=== PATIENT | male | born 1965 | race Two or more races ===

== ENCOUNTER 2020-09-11 15:39 | Inpatient (IN) | payer SELFPAY ==
[~2020-09-11] VITALS: Ht 170.2 cm; Wt 75.0 kg
--- NOTE | 2020-09-11 16:07 | NUR ---
PT IS IN ROOM #1A. DR MEJIA EVALUATED THE PT.
[2020-09-11 16:34] LABS: HEMATOCRIT 32.1 % (36.7-47.1); MEAN CORPUSCULAR HEMOGLOBIN 30.7 uug (23.8-33.4); MEAN CORPUSCULAR VOLUME 91.6 fL (73.0-96.2); PLATELET COUNT (AUTO) 181 K/uL (152-348)
[2020-09-11 16:40] LABS: CREATININE 5.7 mg/dL (0.6-1.3); POTASSIUM 3.9 mmol/L (3.5-5.1)
[2020-09-11 17:02] LABS: BILIRUBIN,DIRECT 0.1 mg/dL (0.0-0.2); BILIRUBIN,TOTAL 0.3 mg/dL (0.2-1.0); TOTAL PROTEIN, SERUM 7.4 g/dL (6.4-8.2)
[2020-09-11] MEDS ORDERED: LORAZEPAM 2 MG/1 ML VIAL IV PRN (18:30)
[2020-09-11] MEDS ORDERED: Z GUARD REMEDY PASTE 57 GM TUBE TOP PRN (18:30)
[2020-09-11] MEDS ORDERED: ONDANSETRON 4 MG/2 ML VIAL IV PRN (18:30)
[2020-09-11] MEDS ORDERED: MAGNESIUM HYDROXIDE 30 ML LIQUID UDC PO PRN (18:30)
--- NOTE | 2020-09-11 18:56 | NUR ---
REPORT GIVEN TO LIVESTOCK LABORER RN.
--- NOTE | 2020-09-11 20:10 | NUR ---
Patient assigned to telemetry room 312.
--- NOTE | 2020-09-11 21:05 | NUR ---
Room changed to 304.
--- NOTE | 2020-09-11 21:11 | NUR ---
Report given to VINCENT Alston.
--- NOTE | 2020-09-11 21:25 | NUR ---
Pt. admitted to 304, under care of COMMISSIONED POLICE OFFICER Jose Armando. Belongs List completed
--- NOTE | 2020-09-11 21:25 | NUR ---
ADMITTED PATIENT IN TELE FLOOR UNDER THE CARE OF LARRY NICHOLSON, PATIENT ALERT ORIENTED, NO SOB NO CHEST PAIN, WITH R CHEST DIALYSIS ACCESS, DRESSING INTACT, PATIENT HAD DIALYSIS TODAY BUT DON'T REMEMBER HOW MUCH THEY TOOK OUT. PATIENT STILL URINATE, GOES TO THE TOILET. PATIENT MEDICATION LIST WAS LISTED ON [email or web address], AND NOTIFY Obed NICHOLSON TO RECONCILE. PATIENT CLAIMED HE HAD NUMBNESS ON FACE, RIGHT ARM AND SHOULDER, AND RIGHT CHEST. BP ELEVATED WILL NOTIFY MD. BYRD TO MONITOR.
[2020-09-11] MEDS ORDERED: DEXTROSE 50% 50 ML DISP.SYRIN IV PRN (22:00)
[2020-09-11] MEDS ORDERED: NIFE-34 PO (22:03)
[2020-09-11] MEDS ORDERED: HYDR-4077 PO (22:03)
[2020-09-11] MEDS ORDERED: FERR325T30 PO (22:03)
[2020-09-11] MEDS ORDERED: METO200T3 PO (22:03)
[2020-09-11] MEDS ORDERED: CALC667T6 PO (22:03)
[2020-09-11] MEDS ORDERED: CALC0.253 PO (22:03)
[2020-09-11] MEDS ORDERED: OLME1TAB19 PO (22:03)
[2020-09-11 22:07] VITALS: BP 154/91
[2020-09-11] MEDS: HEPARIN SODIUM,PORCINE 5,000 UNITS/ML VIAL SQ SCH (23:18)
[2020-09-11] MEDS ORDERED: INSULIN GLARGINE,HUM 300 UNITS/3 ML CARTRIDGE SQ ONE (23:40)
[2020-09-12] VITALS: BP 165/87
[2020-09-12] MEDS: INSULIN GLARGINE,HUM 300 UNITS/3 ML CARTRIDGE SQ SCH ×2 (00:08→21:04)
--- NOTE | 2020-09-12 00:15 | NUR ---
PATIENT HAS ELEVATED BP 165/87, TELE MONITOR SINUS RHYTHM, NOTIFY MARIE STAY WITH ORDER TO CONT TO MONITOR. PATIENT HAS NO SOB NO CHEST PAIN, NO DIZZINESS, NO NAUSEA NO VOMITING ASYMPTOMATIC, CONT TO MONITOR.
[2020-09-12 04:03] VITALS: BP 142/94
[2020-09-12] MEDS: PANTOPRAZOLE SODIUM 40 MG TABLET.DR PO SCH (06:00)
[2020-09-12] MEDS: BLOOD SUGAR DIAGNOSTIC 1 EACH STRIP VI SCH ×4 (06:01→20:55)
--- NOTE | 2020-09-12 06:56 | NUR ---
PATIENT ALERT ORIENTED, NO SOB NO CHEST PAIN, TELE MONITOR SINUS RHYTHM 74. PATIENT HAS NO COMPLAIN OF PAIN AT THIS TIME, V/S STABLE. PATIENT STILL HAS FACIAL NUMBNESS, RIGHT ARM AND RIGHT SHOULDER NUMBNESS, V/S STABLE AT THIS TIME. CONT TO MONITOR.
[2020-09-12 07:12] LABS: HEMATOCRIT 30.8 % (36.7-47.1); MEAN CORPUSCULAR HEMOGLOBIN 31.1 uug (23.8-33.4); MEAN CORPUSCULAR VOLUME 91.2 fL (73.0-96.2); PLATELET COUNT (AUTO) 164 K/uL (152-348)
[2020-09-12] MEDS: CALCIUM ACETATE 667 MG CAP/TAB PO SCH ×3 (08:48→17:29)
[2020-09-12] MEDS: HYDROCHLOROTHIAZIDE 12.5 MG CAPSULE PO SCH (08:49)
[2020-09-12] MEDS: LOSARTAN POTASSIUM 50 MG TABLET PO SCH (08:49)
[2020-09-12] MEDS: NIFEdipine XL 60 MG TABSR PO SCH ×2 (08:49→16:44)
[2020-09-12] MEDS: METOPROLOL SUCCINATE XL 50 MG TAB.SR.24H PO SCH (08:50)
[2020-09-12] MEDS: FERROUS SULFATE 325 MG TABEC PO SCH ×2 (08:51→16:43)
[2020-09-12] MEDS: NICOTINE 7 MG/24HR PATCH TD SCH (08:51)
[2020-09-12] MEDS: hydrALAZINE HCL 50 MG TABLET PO SCH ×2 (08:51→16:44)
[2020-09-12] MEDS: HEPARIN SODIUM,PORCINE 5,000 UNITS/ML VIAL SQ SCH ×2 (08:53→21:01)
[2020-09-12] MEDS: CALCITRIOL 0.25 MCG CAPSULE PO SCH (08:55)
[2020-09-12 09:45] LABS: MAGNESIUM 2.6 mg/dL (1.8-2.4); POTASSIUM 3.9 mmol/L (3.5-5.1)
[2020-09-12 11:46] VITALS: BP 163/87
[2020-09-12] MEDS: INSULIN REGULAR, HUMAN 300 UNIT/3 ML VIAL SQ PRN ×2 (11:59→21:03)
[2020-09-12 15:22] VITALS: BP 124/74
--- NOTE | 2020-09-12 18:17 | NUR ---
Patient in bed, alert and oriented x 4, denies of any pain. IV site on left AC saline lock dressing intact. Dialysis on the right chest intact. Patient is pleasant and cooperative upon assessment. All due meds given per MD order , call light placed within reach. Per patient his last dialysis was yesterday in the center.
[2020-09-12 20:15] VITALS: BP 159/86
--- NOTE | 2020-09-12 20:16 | NUR ---
Patient alert and able to make needs known.Denies pain at this time.No sob.On RA.Dialysis cath on right upper chest intact.Dressing clean and dry.Iv on left AC.No s/s of infiltration. NSR on tele. Patient ambulates to bathroom. Voided with out difficulty.Call light with in reach. Will continue to monitor.
[2020-09-12] MEDS ORDERED: ATORVASTATIN 40 MG TABLET PO SCH (21:00)
[2020-09-12] MEDS: ATORVASTATIN 40 MG TABLET PO SCH (21:01)
[2020-09-13] VITALS: BP 126/72
[2020-09-13 04:10] VITALS: BP 152/75
[2020-09-13] MEDS: PANTOPRAZOLE SODIUM 40 MG TABLET.DR PO SCH (06:17)
[2020-09-13 06:30] LABS: HEMATOCRIT 32.1 % (36.7-47.1); MEAN CORPUSCULAR HEMOGLOBIN 31.3 uug (23.8-33.4); MEAN CORPUSCULAR VOLUME 91.6 fL (73.0-96.2); PLATELET COUNT (AUTO) 164 K/uL (152-348)
[2020-09-13] MEDS: BLOOD SUGAR DIAGNOSTIC 1 EACH STRIP VI SCH ×4 (06:35→20:20)
[2020-09-13 07:26] LABS: MAGNESIUM 2.6 mg/dL (1.8-2.4); POTASSIUM 3.8 mmol/L (3.5-5.1)
--- NOTE | 2020-09-13 07:35 | NUR ---
Critical lab value reported. Creatinine: 9. NIKKY Suárez notified. No new orders at this time.
[2020-09-13 08:15] VITALS: BP_SYST 105; BP_SYST 129; BP_SYST 135; BP_DIAS 61; BP_DIAS 71; BP_DIAS 75
[2020-09-13] MEDS: CALCIUM ACETATE 667 MG CAP/TAB PO SCH ×3 (08:37→17:18)
[2020-09-13] MEDS: FERROUS SULFATE 325 MG TABEC PO SCH ×2 (09:05→16:59)
[2020-09-13] MEDS: METOPROLOL SUCCINATE XL 50 MG TAB.SR.24H PO SCH (09:05)
[2020-09-13] MEDS: HYDROCHLOROTHIAZIDE 12.5 MG CAPSULE PO SCH (09:05)
[2020-09-13] MEDS: LOSARTAN POTASSIUM 50 MG TABLET PO SCH (09:06)
[2020-09-13] MEDS: NIFEdipine XL 60 MG TABSR PO SCH ×2 (09:06→17:18)
[2020-09-13] MEDS: HEPARIN SODIUM,PORCINE 5,000 UNITS/ML VIAL SQ SCH ×2 (09:07→20:22)
[2020-09-13] MEDS: NICOTINE 7 MG/24HR PATCH TD SCH (09:08)
[2020-09-13] MEDS: CALCITRIOL 0.25 MCG CAPSULE PO SCH (09:20)
[2020-09-13] MEDS: hydrALAZINE HCL 50 MG TABLET PO SCH ×2 (09:21→17:18)
[2020-09-13] MEDS: FLUTICASONE PROP NASAL SPRAY 16 GM BOTTLE NS SCH (09:54)
[2020-09-13 11:05] VITALS: BP 157/84
[2020-09-13] MEDS: INSULIN REGULAR, HUMAN 300 UNIT/3 ML VIAL SQ PRN ×3 (12:16→20:22)
[2020-09-13 13:02] LABS: IRON, SERUM 61 ug/dL (50-175)
[2020-09-13 13:15] LABS: FERRITIN 412 ng/mL (26-388)
[2020-09-13 15:10] VITALS: BP 169/88
[2020-09-13 15:25] LABS: *CLARITY,URINE CLEAR (CLEAR); *COLOR,URINE YELLOW (YELLOW); PH,URINE 8.5 (5.0-8.0)
[2020-09-13 15:26] LABS: *BILIRUBIN,URIN NEGATIVE (NEGATIVE); *BLOOD, URINE TRACE INTACT (NEGATIVE); *KETONES,URINE NEGATIVE (NEGATIVE); *UROBILINOGEN,URINE 0.2 E.U./dl (NORMAL); LEUKOCYTE ESTERASE ,URINE NEGATIVE (NEGATIVE); NITRITE, URINE NEGATIVE (NEGATIVE); UGLUCOSE TRACE (NEGATIVE)
[2020-09-13] MEDS ORDERED: PROPOFOL 200 MG/20 ML BOTTLE IV ONE (15:29)
[2020-09-13] MEDS ORDERED: hydrALAZINE HCL 20 MG/1 ML VIAL IV ONE (15:45)
--- NOTE | 2020-09-13 18:37 | NUR ---
Patient resting in bed. AOx3-4. On room air. No signs of acute distress. Patient compliant with medications and care. Patient denies pain/ discomfort at this time. Needs anticipated and provided. Safety measures provided. Call light within reach. Will endorse to incoming shift for continuity of care.
[2020-09-13 20:00] VITALS: BP 167/86
[2020-09-13] MEDS: INSULIN GLARGINE,HUM 300 UNITS/3 ML CARTRIDGE SQ SCH (20:19)
[2020-09-13] MEDS: ATORVASTATIN 40 MG TABLET PO SCH (20:23)
[2020-09-13] MEDS: ZOLPIDEM 5 MG TABLET PO PRN (20:34)
[2020-09-14 04:00] VITALS: BP 133/64
[2020-09-14] MEDS: BLOOD SUGAR DIAGNOSTIC 1 EACH STRIP VI SCH ×4 (06:18→21:14)
[2020-09-14 06:51] LABS: HEMATOCRIT 30.3 % (36.7-47.1); MEAN CORPUSCULAR HEMOGLOBIN 30.8 uug (23.8-33.4); MEAN CORPUSCULAR VOLUME 91.2 fL (73.0-96.2); PLATELET COUNT (AUTO) 152 K/uL (152-348)
[2020-09-14 07:12] LABS: MAGNESIUM 2.5 mg/dL (1.8-2.4); PHOSPHOROUS 6.7 mg/dL (2.5-4.9); POTASSIUM 4.8 mmol/L (3.5-5.1)
[2020-09-14] MEDS: PANTOPRAZOLE SODIUM 40 MG TABLET.DR PO SCH (07:13)
[2020-09-14] MEDS: INSULIN REGULAR, HUMAN 300 UNIT/3 ML VIAL SQ PRN ×4 (07:22→21:20)
[2020-09-14] MEDS: CALCIUM ACETATE 667 MG CAP/TAB PO SCH ×3 (07:26→18:25)
[2020-09-14 07:52] LABS: CREATININE 11.2 mg/dL (0.6-1.3)
[2020-09-14] MEDS ORDERED: NITROGLYCERIN 0.4 MG/TAB BOTTLE SL ONE (08:37)
[2020-09-14] MEDS: hydrALAZINE HCL 50 MG TABLET PO SCH ×2 (08:42→17:43)
[2020-09-14] MEDS: NIFEdipine XL 60 MG TABSR PO SCH ×2 (08:42→17:43)
[2020-09-14] MEDS: NICOTINE 7 MG/24HR PATCH TD SCH (08:42)
[2020-09-14] MEDS: LOSARTAN POTASSIUM 50 MG TABLET PO SCH (08:43)
[2020-09-14] MEDS: METOPROLOL SUCCINATE XL 50 MG TAB.SR.24H PO SCH (08:43)
[2020-09-14] MEDS: FERROUS SULFATE 325 MG TABEC PO SCH ×2 (08:43→17:45)
[2020-09-14] MEDS: HEPARIN SODIUM,PORCINE 5,000 UNITS/ML VIAL SQ SCH ×2 (08:48→21:09)
[2020-09-14] MEDS: FLUTICASONE PROP NASAL SPRAY 16 GM BOTTLE NS SCH (08:49)
[2020-09-14] MEDS: CALCITRIOL 0.25 MCG CAPSULE PO SCH (08:49)
[2020-09-14] MEDS: HYDROCHLOROTHIAZIDE 12.5 MG CAPSULE PO SCH (08:52)
[2020-09-14 08:55] VITALS: BP 110/49
[2020-09-14] MEDS ORDERED: ATOR40TA PO (11:33)
[2020-09-14] MEDS ORDERED: FLUT16SP16 NS (11:33)
[2020-09-14 12:00] VITALS: BP 124/51
[2020-09-14] MEDS ORDERED: ASPI81TA31 PO (15:43)
[2020-09-14 15:48] VITALS: BP 183/79
--- NOTE | 2020-09-14 19:00 | NUR ---
RECEIVED PT IN BED,RESTING QUIETLY, NO ACUTE DISTRESS NOTED.ALERT AND ORIENTED.ON DNR STATUS. NO COMPLAINTS PRESENTED AT TIME OF ASSESSMENT.
[2020-09-14 20:00] VITALS: BP 138/74
--- NOTE | 2020-09-14 20:30 | NUR ---
TEMP AT THIS TIME WAS 100.1, COOLING MEASURES DONE, TYLENOL 2 TABS GIVEN ORDERED, ROOM TEMP REGULATED.SLEPT AT SHORT INTERVALS.
[2020-09-14] MEDS ORDERED: VANCOMYCIN IV 1,000 MG in IV DEXTROSE 5% 250 ML IV ONE (20:45)
[2020-09-14] MEDS: ATORVASTATIN 40 MG TABLET PO SCH (21:00)
[2020-09-14] MEDS ORDERED: MEROPENEM 0.5 G in IV NORMAL SALINE 50 ML IV SCH ×2 (21:00→21:12)
[2020-09-14] MEDS ORDERED: MEROPENEM 0.5 G in IV NORMAL SALINE 50 ML IV PRN (21:00)
[2020-09-14] MEDS: ACETAMINOPHEN 325 MG TABLET PO PRN (21:05)
[2020-09-14] MEDS: INSULIN GLARGINE,HUM 300 UNITS/3 ML CARTRIDGE SQ SCH (21:19)
[2020-09-14] MEDS ORDERED: MEROPENEM 1 G in IV NORMAL SALINE 100 ML IV SCH (22:00)
--- NOTE | 2020-09-14 23:50 | NUR ---
DUE MEDS GIVEN, INSULIN COVERAGE ADMINISTERED PER SLIDING SCALE, NO DIABETIC CRISES NOTED SO FAR.
--- NOTE | 2020-09-14 23:51 | NUR ---
ORDERED IV ANTIBIOTICS GIVEN AND TOLERATED WELL BY PT.
--- NOTE | 2020-09-15 04:25 | NUR ---
UP TO BR,PT ACCIDENTALLY PULLED IV LINE, RESTARTED ON RIGHT WRIST.
[2020-09-15] MEDS: PANTOPRAZOLE SODIUM 40 MG TABLET.DR PO SCH (06:35)
[2020-09-15] MEDS: BLOOD SUGAR DIAGNOSTIC 1 EACH STRIP VI SCH ×4 (06:38→21:08)
[2020-09-15 07:21] VITALS: BP 109/54
--- NOTE | 2020-09-15 07:23 | NUR ---
BS THIS AM 158,NO DIABETIC REACTION NOTED, ENDORSED TO AM NURSE IN APPARENTLY FAIR CONDITION.
--- NOTE | 2020-09-15 07:30 | NUR ---
RECEIVED PATIENT IN BED AWAKE ALERT AND ORIENTED DENIES PAIN OR DISCOMFORTS AT THIS TIME ON ROOM AIR WITH NO SHORTNESS OF BREATH RIGHT UPPER CHEST PERMA CATH IS INTACT WITH NO S/S OF BLEEDING ON SITE NO S/S OF HYPO/HYPERGLYCEMIC REACTIONS AT THIS TIME CALL LIGHTS AND PERSONAL BELONGINGS ARE WITHIN EASY REACH AT THIS TIME WILL CONTINUE TO OBSERVE.
[2020-09-15] MEDS: INSULIN REGULAR, HUMAN 300 UNIT/3 ML VIAL SQ PRN ×4 (08:19→21:13)
[2020-09-15] MEDS: FERROUS SULFATE 325 MG TABEC PO SCH ×2 (08:20→17:21)
[2020-09-15] MEDS: NICOTINE 7 MG/24HR PATCH TD SCH (08:20)
[2020-09-15] MEDS: CALCIUM ACETATE 667 MG CAP/TAB PO SCH ×3 (08:20→17:22)
[2020-09-15] MEDS: FLUTICASONE PROP NASAL SPRAY 16 GM BOTTLE NS SCH (08:21)
[2020-09-15] MEDS: CALCITRIOL 0.25 MCG CAPSULE PO SCH (08:21)
[2020-09-15] MEDS: HEPARIN SODIUM,PORCINE 5,000 UNITS/ML VIAL SQ SCH ×2 (08:48→21:13)
[2020-09-15] MEDS: LOSARTAN POTASSIUM 50 MG TABLET PO SCH (08:51)
[2020-09-15] MEDS: hydrALAZINE HCL 50 MG TABLET PO SCH ×2 (08:51→17:00)
[2020-09-15] MEDS: NIFEdipine XL 60 MG TABSR PO SCH ×2 (08:52→17:00)
[2020-09-15] MEDS: METOPROLOL SUCCINATE XL 50 MG TAB.SR.24H PO SCH (08:52)
[2020-09-15] MEDS: HYDROCHLOROTHIAZIDE 12.5 MG CAPSULE PO SCH (08:52)
--- NOTE | 2020-09-15 09:04 | NUR ---
ALL BLOOD PRESSURE MEDICATIONS HELD AT THIS TIME UNKNOWN IF PATIENT WILL BE HAVING DIALYSIS TODAY SYS IS 102 ASSYMPTOMATIC AT THIS TIME.WILL CONTINUE TO OBSERVE.
--- NOTE | 2020-09-15 10:30 | NUR ---
DR STONE HERE AND SEEN PATIENT WITH NEW ORDERS AND NOTED.
[2020-09-15] MEDS: ACETAMINOPHEN 325 MG TABLET PO PRN ×2 (12:21→21:55)
--- NOTE | 2020-09-15 12:21 | NUR ---
TEMP IS 99.6 ORAL AND PATIENT C/O GENERALISED ACHES MEDICATED WITH TYLENOL ORDERED MADE COMFORTABLE WILL OBSERVE.
[2020-09-15] MEDS ORDERED: CEFEPIME HCL 2 G in IV DEXTROSE 5% 100 ML IV SCH (13:45)
[2020-09-15] MEDS ORDERED: VANCOMYCIN IV 500 MG in IV DEXTROSE 5% 100 ML IV PRN (14:00)
--- NOTE | 2020-09-15 14:35 | NUR ---
DR ANDERSON REPRESENTATIVE HERE TO SEE PATIENT WITH NEW ORDERS AND NOTED
--- NOTE | 2020-09-15 14:45 | NUR ---
PATIENT ACCIDENTALLY PULLED OUT HIS HEPLOCK FROM HIS LEFT HAND REINSERTED TO HIS RIGHT FOREARM WITH ONE ATTEMPT GAUGE 20 AND FLUSHED PER PROTOCOL
[2020-09-15] MEDS ORDERED: CEFEPIME HCL 1 G in IV DEXTROSE 5% 50 ML IV ONE (15:00)
--- NOTE | 2020-09-15 15:00 | NUR ---
PATIENT HAS NO ORDER FOR DIALYSIS WAS SEEN BY DR REDYD EARLY THIS AM SO I CALLED SHOAIB TO ASK HIM IF PATIENT IS ON HIS DIALYSIS LIST BECAUSE PATIENTS SCHEDULE IS [facility] SO HE STATED THAT PATIENT IS NOT ON HIS LIST BUT WILL CALL DR REDDY TO ASK HIM AND WILL THEN LET ME KNOW.
[2020-09-15 15:24] VITALS: BP 121/63
--- NOTE | 2020-09-15 17:59 | NUR ---
STILL AWAITING FOR THE SUSTAINABILITY PROJECT COORDINATOR INPUT TO IF PATIENT WILL BE DIALYSED TODAY OR NOT
[2020-09-15] MEDS ORDERED: CEFEPIME HCL 1 G in IV DEXTROSE 5% 50 ML IV SCH (18:00)
--- NOTE | 2020-09-15 18:10 | NUR ---
HAND HARDENER HERE AND STARTED DIALYSIS AT THIS TIME.
--- NOTE | 2020-09-15 20:14 | NUR ---
Patient in bed alert and able to make needs known. Dialysis done with 2L output per HD nurse. Perma cath on right chest in place with dressing clean and dry.No active bleeding.Patient denies pain .No s/s of distress noted.On Ra. Iv on right Fa patent and intact.Administered IV ATb post HD as ordered.No a/r noted.Call light with in reach.Will continue to monitor.
[2020-09-15 20:42] VITALS: BP 138/68
[2020-09-15] MEDS ORDERED: VANCOMYCIN IV 1,000 MG in IV DEXTROSE 5% 250 ML IV ONE (21:00)
[2020-09-15] MEDS: ATORVASTATIN 40 MG TABLET PO SCH (21:09)
[2020-09-15] MEDS: INSULIN GLARGINE,HUM 300 UNITS/3 ML CARTRIDGE SQ SCH (21:12)
[2020-09-16 04:30] VITALS: BP 144/73
[2020-09-16] MEDS: BLOOD SUGAR DIAGNOSTIC 1 EACH STRIP VI SCH ×4 (06:31→20:08)
[2020-09-16] MEDS: PANTOPRAZOLE SODIUM 40 MG TABLET.DR PO SCH (06:31)
[2020-09-16 07:10] LABS: MAGNESIUM 2.3 mg/dL (1.8-2.4); POTASSIUM 4.3 mmol/L (3.5-5.1)
[2020-09-16 07:19] LABS: HEMATOCRIT 27.3 % (36.7-47.1); MEAN CORPUSCULAR HEMOGLOBIN 31.1 uug (23.8-33.4); MEAN CORPUSCULAR VOLUME 91.7 fL (73.0-96.2); PLATELET COUNT (AUTO) 86 K/uL (152-348)
[2020-09-16 07:55] LABS: CREATININE 10.3 mg/dL (0.6-1.3)
--- NOTE | 2020-09-16 08:00 | NUR ---
RECEIVED CHANGE OF SHIFT REPORT ON PT. A/O GENERALIZED WEAKNESS, PT IS A/OX3, RUNNING LOW GRADE FEVER, PT ON ROOM AIR, NO SIGNS OF DISTRESS, NO REPORTS OF PAIN AT THIS TIME. PT BRP, IV ON THE RIGHT FA 20G SALINE LOCKED. PT BED LOW AND LOCKED, CALL LIGHT WITHIN REACH, PT RESTING IN BED, WILL CONTINUE WITH PLAN OF CARE.
[2020-09-16] MEDS: FERROUS SULFATE 325 MG TABEC PO SCH ×2 (08:59→17:30)
[2020-09-16] MEDS: METOPROLOL SUCCINATE XL 50 MG TAB.SR.24H PO SCH (09:04)
[2020-09-16] MEDS: hydrALAZINE HCL 50 MG TABLET PO SCH ×2 (09:04→17:35)
[2020-09-16] MEDS: CALCIUM ACETATE 667 MG CAP/TAB PO SCH ×3 (09:04→17:30)
[2020-09-16] MEDS: LOSARTAN POTASSIUM 50 MG TABLET PO SCH (09:05)
[2020-09-16] MEDS: HYDROCHLOROTHIAZIDE 12.5 MG CAPSULE PO SCH (09:05)
[2020-09-16] MEDS: NIFEdipine XL 60 MG TABSR PO SCH ×2 (09:05→17:34)
[2020-09-16] MEDS: NICOTINE 7 MG/24HR PATCH TD SCH (09:05)
[2020-09-16] MEDS: HEPARIN SODIUM,PORCINE 5,000 UNITS/ML VIAL SQ SCH ×2 (09:06→20:43)
[2020-09-16] MEDS: FLUTICASONE PROP NASAL SPRAY 16 GM BOTTLE NS SCH (09:07)
[2020-09-16] MEDS: CALCITRIOL 0.25 MCG CAPSULE PO SCH (09:07)
[2020-09-16 12:00] VITALS: BP 152/86
[2020-09-16] MEDS: ACETAMINOPHEN 325 MG TABLET PO PRN ×2 (12:00→20:19)
[2020-09-16] MEDS ORDERED: CEFTRIAXONE 1 G in IV DEXTROSE 5% 50 ML IV ONE (13:00)
--- NOTE | 2020-09-16 14:00 | NUR ---
PT STARTED DIALYSIS WITH NURSE IN ROOM AT BEDSIDE, WILL CONTINUE TO MONITOR.
[2020-09-16] MEDS: CEFTRIAXONE 1 G VIAL IM ONE ×2 (14:34→17:14)
[2020-09-16 15:44] VITALS: BP 100/50
[2020-09-16] MEDS ORDERED: CEFEPIME HCL 1 G in IV DEXTROSE 5% 50 ML IV SCH (16:00)
--- NOTE | 2020-09-16 17:00 | NUR ---
DIALYSIS NURSE STATED 1000 OUT, VITALS STABLE, PT TOLERATED WELL. WILL CONTINUE TO MONITOR.
[2020-09-16] MEDS: INSULIN REGULAR, HUMAN 300 UNIT/3 ML VIAL SQ PRN ×2 (17:45→20:23)
[2020-09-16] MEDS: ATORVASTATIN 40 MG TABLET PO SCH (20:16)
[2020-09-16] MEDS: INSULIN GLARGINE,HUM 300 UNITS/3 ML CARTRIDGE SQ SCH (20:23)
--- NOTE | 2020-09-16 20:26 | NUR ---
Patient in bed awake in no apparent distress noted. On Ra.Denies pain at this time.Due meds given except Heparin Hold x1 for now Per N.P Braulio. Perma cath in place with dressing clean and dry.Iv on right FA .No s/s of infiltration. Call light with in reach.Will continue to monitor.
[2020-09-16 22:05] VITALS: BP 115/61
[2020-09-17] MEDS: HYDROCODONE/APAP 5-325MG TABLET PO PRN (03:07)
[2020-09-17 04:00] VITALS: BP 102/51
[2020-09-17 04:05] VITALS: BP 102/51
[2020-09-17] MEDS: PANTOPRAZOLE SODIUM 40 MG TABLET.DR PO SCH (06:08)
[2020-09-17 06:47] LABS: HEMATOCRIT 24.8 % (36.7-47.1); MEAN CORPUSCULAR HEMOGLOBIN 30.9 uug (23.8-33.4); MEAN CORPUSCULAR VOLUME 91.4 fL (73.0-96.2); PLATELET COUNT (AUTO) 85 K/uL (152-348)
[2020-09-17] MEDS: BLOOD SUGAR DIAGNOSTIC 1 EACH STRIP VI SCH ×4 (06:51→20:48)
[2020-09-17 07:15] LABS: MAGNESIUM 2.4 mg/dL (1.8-2.4); PHOSPHOROUS 4.8 mg/dL (2.5-4.9); POTASSIUM 4.2 mmol/L (3.5-5.1)
[2020-09-17 07:17] LABS: CREATININE 8.3 mg/dL (0.6-1.3)
[2020-09-17] MEDS: CALCIUM ACETATE 667 MG CAP/TAB PO SCH ×3 (08:42→17:08)
[2020-09-17 08:51] VITALS: BP 111/52
[2020-09-17] MEDS: FERROUS SULFATE 325 MG TABEC PO SCH ×2 (08:54→16:28)
[2020-09-17] MEDS: NIFEdipine XL 60 MG TABSR PO SCH ×2 (08:55→16:28)
[2020-09-17] MEDS: HYDROCHLOROTHIAZIDE 12.5 MG CAPSULE PO SCH (08:56)
[2020-09-17] MEDS: hydrALAZINE HCL 50 MG TABLET PO SCH ×2 (08:56→16:29)
[2020-09-17] MEDS: LOSARTAN POTASSIUM 50 MG TABLET PO SCH (08:57)
[2020-09-17] MEDS: METOPROLOL SUCCINATE XL 50 MG TAB.SR.24H PO SCH (08:57)
[2020-09-17] MEDS: HEPARIN SODIUM,PORCINE 5,000 UNITS/ML VIAL SQ SCH ×2 (08:58→20:46)
[2020-09-17] MEDS: FLUTICASONE PROP NASAL SPRAY 16 GM BOTTLE NS SCH (08:59)
[2020-09-17] MEDS: NICOTINE 7 MG/24HR PATCH TD SCH (08:59)
[2020-09-17] MEDS: CALCITRIOL 0.25 MCG CAPSULE PO SCH (09:42)
--- NOTE | 2020-09-17 10:15 | NUR ---
NSG: RECEIVED CHANGE OF SHIFT REPORT ON PT. A/O 3,GENERALIZED WEAKNESS, PT ON ROOM AIR, NO SIGNS OF DISTRESS, NO REPORTS OF PAIN AT THIS TIME. PT BRP, IV ON THE RIGHT FA 20G SALINE LOCKED. HELD MOST OF BP MEDS DUE TO PATIENT BLOOD PRESSURE WAS LOW. PT BED LOW AND LOCKED, CALL LIGHT WITHIN REACH, PT RESTING IN BED, WILL CONTINUE WITH PLAN OF CARE.
[2020-09-17] MEDS: INSULIN REGULAR, HUMAN 300 UNIT/3 ML VIAL SQ PRN ×3 (11:42→20:47)
[2020-09-17 11:48] VITALS: BP 102/54
--- NOTE | 2020-09-17 12:07 | NUR ---
NSG: PADILLA SHER MADE AWARE ABOUT ,HELD MOST OF 9 AM PO BLOOD PRESSURE MEDS AND HELD HEPARIN SUB-Q , STATED OK. COMPLIANCE SPECIALIST AT BED SIDE.
--- NOTE | 2020-09-17 14:00 | NUR ---
NSG: resting in bed comfortably. GEODETIC SURVEYOR TECHNOLOGIST PASCUIAL assised the patient. waiting for hospital superintendent to come to pull the line per quill fixer pascuail. no c/o pain or discomfort at this time.continue monitoring for safety.
[2020-09-17 16:00] VITALS: BP 122/68
[2020-09-17] MEDS ORDERED: LIDOCAINE 2%-EPI 1:100,000 20 ML VIAL IJ PRN (16:45)
[2020-09-17 17:15] LABS: EOSINOPHILS % (MANUAL) 5 % (0-8); LYMPHOCYTES % (MANUAL) 15 % (20-40); MONOCYTES % (MANUAL) 13 % (2-10); NEUTROPHILS % (MANUAL) 67 % (42-75)
[2020-09-17 20:00] VITALS: BP 158/80
[2020-09-17] MEDS: ATORVASTATIN 40 MG TABLET PO SCH (20:46)
[2020-09-17] MEDS: INSULIN GLARGINE,HUM 300 UNITS/3 ML CARTRIDGE SQ SCH (20:47)
[2020-09-18 04:00] VITALS: BP 147/81
--- NOTE | 2020-09-18 05:41 | NUR ---
Pt slept throughout the night. No distress noted. Portacath tip sent for culture. Safety and comfort provided. No other issues or concerns at this time, will endorse to day shift.
[2020-09-18] MEDS: PANTOPRAZOLE SODIUM 40 MG TABLET.DR PO SCH (06:13)
[2020-09-18] MEDS: BLOOD SUGAR DIAGNOSTIC 1 EACH STRIP VI SCH ×4 (06:41→20:19)
[2020-09-18 06:51] LABS: HEMATOCRIT 27.8 % (36.7-47.1); MEAN CORPUSCULAR HEMOGLOBIN 30.3 uug (23.8-33.4); MEAN CORPUSCULAR VOLUME 92.1 fL (73.0-96.2); PLATELET COUNT (AUTO) 92 K/uL (152-348)
[2020-09-18 07:08] LABS: MAGNESIUM 2.5 mg/dL (1.8-2.4); PHOSPHOROUS 5.3 mg/dL (2.5-4.9); POTASSIUM 4.3 mmol/L (3.5-5.1)
--- NOTE | 2020-09-18 07:10 | NUR ---
received patient in bed sleeping, in stable condition. no s/s of any SOB, pain or discomfort at this time. IV on right forearm #20. call light and belongings within reach. will continue to monitor.
[2020-09-18 07:14] LABS: CREATININE 10.1 mg/dL (0.6-1.3)
[2020-09-18] MEDS: NICOTINE 7 MG/24HR PATCH TD SCH (08:39)
[2020-09-18] MEDS: FERROUS SULFATE 325 MG TABEC PO SCH ×2 (08:40→16:37)
[2020-09-18] MEDS: CALCIUM ACETATE 667 MG CAP/TAB PO SCH ×3 (08:40→17:25)
[2020-09-18] MEDS: FLUTICASONE PROP NASAL SPRAY 16 GM BOTTLE NS SCH (08:41)
[2020-09-18] MEDS: HEPARIN SODIUM,PORCINE 5,000 UNITS/ML VIAL SQ SCH ×2 (08:43→20:15)
[2020-09-18] MEDS: INSULIN REGULAR, HUMAN 300 UNIT/3 ML VIAL SQ PRN ×4 (08:47→20:23)
[2020-09-18] MEDS: hydrALAZINE HCL 50 MG TABLET PO SCH ×2 (08:52→16:38)
[2020-09-18] MEDS: HYDROCHLOROTHIAZIDE 12.5 MG CAPSULE PO SCH (08:52)
[2020-09-18] MEDS: METOPROLOL SUCCINATE XL 50 MG TAB.SR.24H PO SCH (08:52)
[2020-09-18] MEDS: CALCITRIOL 0.25 MCG CAPSULE PO SCH (08:53)
[2020-09-18] MEDS: NIFEdipine XL 60 MG TABSR PO SCH ×2 (08:53→16:37)
[2020-09-18] MEDS: LOSARTAN POTASSIUM 50 MG TABLET PO SCH (08:53)
[2020-09-18] MEDS ORDERED: CEFAZOLIN 2 G in IV DEXTROSE 5% 100 ML IV SCH (11:00)
[2020-09-18 11:07] VITALS: BP 117/62
[2020-09-18] MEDS: CEFAZOLIN 1 G in IV DEXTROSE 5% 50 ML IV SCH (11:48)
[2020-09-18 13:06] LABS: BAND % (MANUAL) 1 % (0-10); LYMPHOCYTES % (MANUAL) 16 % (20-40); MONOCYTES % (MANUAL) 10 % (2-10); NEUTROPHILS % (MANUAL) 67 % (42-75)
[2020-09-18 13:07] LABS: EOSINOPHILS % (MANUAL) 6 % (0-8)
[2020-09-18 15:05] VITALS: BP 124/68
[2020-09-18] MEDS ORDERED: VANCOMYCIN IV 500 MG in IV DEXTROSE 5% 100 ML IV ONE (16:00)
--- NOTE | 2020-09-18 18:08 | NUR ---
patient in bed awake and alert, in stable condition. no complains of any SOB, pain or discomfort. patient on room air. IV patent and intact. call light and belongings within reach. safety precautions in place. will report to oncoming shift
[2020-09-18 20:10] VITALS: BP 136/75
[2020-09-18] MEDS: ATORVASTATIN 40 MG TABLET PO SCH (20:16)
[2020-09-18] MEDS: HYDROCODONE/APAP 5-325MG TABLET PO PRN (20:21)
[2020-09-18] MEDS: INSULIN GLARGINE,HUM 300 UNITS/3 ML CARTRIDGE SQ SCH (20:24)
[2020-09-19] MEDS ORDERED: CIPROFLOXACIN 0.3% OPHT DROP 2.5 ML BOTTLE ONE (00:11)
[2020-09-19] MEDS: CIPROFLOXACIN 0.3% OPHT DROP 2.5 ML BOTTLE RIGHTEYE SCH ×13 (00:14→23:00)
[2020-09-19 04:15] VITALS: BP 102/57
--- NOTE | 2020-09-19 05:33 | NUR ---
Pt slept throughout the night. Noticed redness and swelling in right eye, Braulio notified with orders for cipro drops. Patient tolerated well. Tolerated all medications given. Safety and comfort provided. No other issues or concerns at this time, will endorse to day shift.
[2020-09-19] MEDS: PANTOPRAZOLE SODIUM 40 MG TABLET.DR PO SCH (06:15)
[2020-09-19] MEDS: BLOOD SUGAR DIAGNOSTIC 1 EACH STRIP VI SCH ×4 (06:54→20:50)
--- NOTE | 2020-09-19 07:10 | NUR ---
received patient in bed sleeping in stable condition. no s/s of SOB, pain or discomfort at this time. call light within reach. will continue to monitor.
[2020-09-19 07:59] LABS: *BILIRUBIN,URIN NEGATIVE (NEGATIVE); *BLOOD, URINE 1+ (NEGATIVE); *CLARITY,URINE CLEAR (CLEAR); *COLOR,URINE YELLOW (YELLOW); *KETONES,URINE NEGATIVE (NEGATIVE); *UROBILINOGEN,URINE 0.2 E.U./dl (NORMAL); LEUKOCYTE ESTERASE ,URINE NEGATIVE (NEGATIVE); NITRITE, URINE NEGATIVE (NEGATIVE); PH,URINE 7.5 (5.0-8.0); UGLUCOSE TRACE (NEGATIVE)
[2020-09-19] MEDS: LOSARTAN POTASSIUM 50 MG TABLET PO SCH (09:00)
[2020-09-19] MEDS: hydrALAZINE HCL 50 MG TABLET PO SCH ×2 (09:00→17:22)
[2020-09-19] MEDS ORDERED: CIPROFLOXACIN 0.3% OPHT DROP 2.5 ML BOTTLE RIGHTEYE SCH (09:00)
[2020-09-19] MEDS: METOPROLOL SUCCINATE XL 50 MG TAB.SR.24H PO SCH (09:00)
[2020-09-19] MEDS: FERROUS SULFATE 325 MG TABEC PO SCH ×2 (09:54→17:22)
[2020-09-19] MEDS: NICOTINE 7 MG/24HR PATCH TD SCH (09:54)
[2020-09-19] MEDS: NIFEdipine XL 60 MG TABSR PO SCH ×2 (09:54→17:22)
[2020-09-19] MEDS: CALCIUM ACETATE 667 MG CAP/TAB PO SCH ×3 (09:54→17:22)
[2020-09-19] MEDS: HYDROCHLOROTHIAZIDE 12.5 MG CAPSULE PO SCH (09:59)
[2020-09-19] MEDS: HEPARIN SODIUM,PORCINE 5,000 UNITS/ML VIAL SQ SCH ×2 (10:05→21:40)
[2020-09-19] MEDS: CALCITRIOL 0.25 MCG CAPSULE PO SCH (10:07)
[2020-09-19] MEDS: FLUTICASONE PROP NASAL SPRAY 16 GM BOTTLE NS SCH (10:12)
[2020-09-19] MEDS: CEFAZOLIN 1 G in IV DEXTROSE 5% 50 ML IV SCH (11:55)
[2020-09-19 12:00] VITALS: BP 139/69
[2020-09-19] MEDS: INSULIN REGULAR, HUMAN 300 UNIT/3 ML VIAL SQ PRN ×3 (12:27→20:52)
[2020-09-19 13:11] LABS: BACTERIA,URINE NONE SEEN /HPF (NONE SEEN); SQUAMOUS EPITHELIAL CELL,UR FEW /HPF (NONE SEEN); WBC,URINE 0-3 /HPF (0-3)
[2020-09-19 16:00] VITALS: BP 121/61
[2020-09-19 20:06] VITALS: BP 109/53
[2020-09-19] MEDS: ATORVASTATIN 40 MG TABLET PO SCH (20:34)
[2020-09-19] MEDS: INSULIN GLARGINE,HUM 300 UNITS/3 ML CARTRIDGE SQ SCH (20:51)
[2020-09-19] MEDS: HYDROCODONE/APAP 5-325MG TABLET PO PRN (21:04)
[2020-09-20] MEDS: CIPROFLOXACIN 0.3% OPHT DROP 2.5 ML BOTTLE RIGHTEYE SCH ×5 (03:11→20:27)
[2020-09-20 04:06] VITALS: BP 123/61
[2020-09-20] MEDS: PANTOPRAZOLE SODIUM 40 MG TABLET.DR PO SCH (06:35)
[2020-09-20] MEDS: BLOOD SUGAR DIAGNOSTIC 1 EACH STRIP VI SCH ×4 (06:35→20:24)
[2020-09-20] MEDS: CALCIUM ACETATE 667 MG CAP/TAB PO SCH ×3 (07:33→17:04)
[2020-09-20 08:24] LABS: HEMATOCRIT 25.1 % (36.7-47.1); MEAN CORPUSCULAR HEMOGLOBIN 30.6 uug (23.8-33.4); MEAN CORPUSCULAR VOLUME 90.9 fL (73.0-96.2); PLATELET COUNT (AUTO) 116 K/uL (152-348)
[2020-09-20] MEDS: FERROUS SULFATE 325 MG TABEC PO SCH ×2 (08:40→16:35)
[2020-09-20] MEDS: NICOTINE 7 MG/24HR PATCH TD SCH (08:40)
[2020-09-20] MEDS: CALCITRIOL 0.25 MCG CAPSULE PO SCH (08:42)
[2020-09-20] MEDS: HEPARIN SODIUM,PORCINE 5,000 UNITS/ML VIAL SQ SCH ×2 (08:43→20:32)
[2020-09-20 08:47] LABS: MAGNESIUM 2.8 mg/dL (1.8-2.4); PHOSPHOROUS 6.2 mg/dL (2.5-4.9)
[2020-09-20] MEDS: FLUTICASONE PROP NASAL SPRAY 16 GM BOTTLE NS SCH (08:57)
[2020-09-20] MEDS: HYDROCHLOROTHIAZIDE 12.5 MG CAPSULE PO SCH (09:11)
[2020-09-20] MEDS: LOSARTAN POTASSIUM 50 MG TABLET PO SCH (09:11)
[2020-09-20] MEDS: NIFEdipine XL 60 MG TABSR PO SCH ×2 (09:12→16:36)
[2020-09-20] MEDS: hydrALAZINE HCL 50 MG TABLET PO SCH ×2 (09:12→16:37)
[2020-09-20] MEDS: METOPROLOL SUCCINATE XL 50 MG TAB.SR.24H PO SCH (09:13)
[2020-09-20] MEDS: INSULIN REGULAR, HUMAN 300 UNIT/3 ML VIAL SQ PRN ×3 (11:11→20:30)
[2020-09-20 11:35] VITALS: BP 138/70
[2020-09-20] MEDS: CEFAZOLIN 1 G in IV DEXTROSE 5% 50 ML IV SCH (11:40)
[2020-09-20 15:13] VITALS: BP 148/69
[2020-09-20 20:05] VITALS: BP_SYST 160; BP_SYST 173; BP_DIAS 71; BP_DIAS 83
[2020-09-20] MEDS: ATORVASTATIN 40 MG TABLET PO SCH (20:25)
[2020-09-20] MEDS: INSULIN GLARGINE,HUM 300 UNITS/3 ML CARTRIDGE SQ SCH (20:31)
[2020-09-20 21:15] VITALS: BP 156/68
[2020-09-20] MEDS: HYDROCODONE/APAP 5-325MG TABLET PO PRN (21:47)
[2020-09-21] MEDS: CIPROFLOXACIN 0.3% OPHT DROP 2.5 ML BOTTLE RIGHTEYE SCH ×6 (00:01→21:04)
[2020-09-21] MEDS: PANTOPRAZOLE SODIUM 40 MG TABLET.DR PO SCH (06:02)
[2020-09-21] MEDS: BLOOD SUGAR DIAGNOSTIC 1 EACH STRIP VI SCH ×4 (06:38→21:13)
--- NOTE | 2020-09-21 06:41 | NUR ---
Patient awake in no acute distress noted.BP 178/85 .Pulse 71,18 .On RA 100% afebrile through out the shift.Dr Resendiz Notified with new order received noted and carried out.Will endorse to oncoming shift.
[2020-09-21 06:46] VITALS: BP 178/85
[2020-09-21] MEDS: CLONIDINE-TTS 1 PATCH TD SCH (06:58)
[2020-09-21 07:19] LABS: HEMATOCRIT 26.2 % (36.7-47.1); MEAN CORPUSCULAR HEMOGLOBIN 30.4 uug (23.8-33.4); MEAN CORPUSCULAR VOLUME 90.3 fL (73.0-96.2); PLATELET COUNT (AUTO) 138 K/uL (152-348)
--- NOTE | 2020-09-21 07:30 | NUR ---
Received report from VINCENT Luna. All questions, comments, and concerns were addressed. Received patient resting in assigned bed, alert and oriented. Bed is in low and locked position. Respirations are even and unlabored, no signs of respiratory distress noted.
[2020-09-21 07:58] LABS: MAGNESIUM 2.6 mg/dL (1.8-2.4); PHOSPHOROUS 6.5 mg/dL (2.5-4.9); POTASSIUM 4.8 mmol/L (3.5-5.1)
[2020-09-21 08:06] LABS: CREATININE 14.3 mg/dL (0.6-1.3)
[2020-09-21] MEDS: CALCITRIOL 0.25 MCG CAPSULE PO SCH (08:28)
[2020-09-21] MEDS: FLUTICASONE PROP NASAL SPRAY 16 GM BOTTLE NS SCH (08:28)
[2020-09-21] MEDS: METOPROLOL SUCCINATE XL 50 MG TAB.SR.24H PO SCH (08:29)
[2020-09-21] MEDS: LOSARTAN POTASSIUM 50 MG TABLET PO SCH (08:30)
[2020-09-21] MEDS: CALCIUM ACETATE 667 MG CAP/TAB PO SCH ×3 (08:30→17:26)
[2020-09-21] MEDS: NICOTINE 7 MG/24HR PATCH TD SCH (08:30)
[2020-09-21] MEDS: HYDROCHLOROTHIAZIDE 12.5 MG CAPSULE PO SCH (08:30)
[2020-09-21] MEDS: FERROUS SULFATE 325 MG TABEC PO SCH ×2 (08:30→17:26)
[2020-09-21] MEDS: hydrALAZINE HCL 50 MG TABLET PO SCH ×2 (08:30→17:00)
[2020-09-21] MEDS: HEPARIN SODIUM,PORCINE 5,000 UNITS/ML VIAL SQ SCH ×2 (08:32→21:06)
[2020-09-21] MEDS: NIFEdipine XL 60 MG TABSR PO SCH ×2 (08:33→17:00)
[2020-09-21] MEDS: CEFAZOLIN 1 G in IV DEXTROSE 5% 50 ML IV SCH (11:44)
[2020-09-21] MEDS: INSULIN REGULAR, HUMAN 300 UNIT/3 ML VIAL SQ PRN ×3 (11:49→21:22)
[2020-09-21 12:00] VITALS: BP 115/61
--- NOTE | 2020-09-21 12:50 | NUR ---
BS 168. 3 units insulin given per sliding scale. Tolerated well. Patient able to tolerate food and fluids. Provided with lunch tray.
--- NOTE | 2020-09-21 12:53 | NUR ---
Patient is alert and oriented. Patient is compliant with care. Compliant with medications, no adverse reaction noted. Patient receiving IV ATB therapy, tolerating well. RFA IV is patient. No pain, redness, or swelling at IV site. Patient's right eye is swollen, red, and patient reports pain. Receiving ATB eye drops around the clock. Patient is independent with ADL's, self care, and Ambulation.
[2020-09-21 16:00] VITALS: BP 108/66
--- NOTE | 2020-09-21 17:10 | NUR ---
BS 147. 2 units insulin given per sliding scale. Provided with dinner tray. Patient able to tolerate food and fluids.
--- NOTE | 2020-09-21 19:00 | NUR ---
RECD PT IN BED,RESTING QUIETLY, NO VOICED COMPLAINTS, NEEDS ATTENDED TO,
[2020-09-21 20:00] VITALS: BP 127/66
[2020-09-21] MEDS: ATORVASTATIN 40 MG TABLET PO SCH (21:04)
[2020-09-21] MEDS: INSULIN GLARGINE,HUM 300 UNITS/3 ML CARTRIDGE SQ SCH (21:29)
[2020-09-22] MEDS: HYDROCODONE/APAP 5-325MG TABLET PO PRN ×2 (01:31→05:06)
[2020-09-22 04:00] VITALS: BP 124/64
[2020-09-22] MEDS: CIPROFLOXACIN 0.3% OPHT DROP 2.5 ML BOTTLE RIGHTEYE SCH ×6 (04:00→20:18)
--- NOTE | 2020-09-22 05:12 | NUR ---
PT IS DNR, REFUSED EYE MEDICATION 2X, EASILY GETS IRRITATED, NORCO GIVEN EARLIER FOR RT.EYE PAIN,RELIEF AFFORDED.
[2020-09-22] MEDS: BLOOD SUGAR DIAGNOSTIC 1 EACH STRIP VI SCH ×4 (06:33→20:25)
[2020-09-22] MEDS: PANTOPRAZOLE SODIUM 40 MG TABLET.DR PO SCH (06:33)
[2020-09-22 06:38] LABS: HEMATOCRIT 24.6 % (36.7-47.1); MEAN CORPUSCULAR HEMOGLOBIN 30.2 uug (23.8-33.4); MEAN CORPUSCULAR VOLUME 90.1 fL (73.0-96.2); PLATELET COUNT (AUTO) 152 K/uL (152-348)
[2020-09-22 06:59] LABS: ALKALINE PHOSPHATASE 72 U/L (50-136); ASPARTATE AMINOTRANSFERASE 24 U/L (15-37); BILIRUBIN,TOTAL 0.2 mg/dL (0.2-1.0); CARBON DIOXIDE 21 mmol/L (21-32); CHLORIDE 99 mmol/L (98-107); GLUCOSE 123 mg/dL (74-106); MAGNESIUM 2.7 mg/dL (1.8-2.4); PHOSPHOROUS 6.3 mg/dL (2.5-4.9); POTASSIUM 5.4 mmol/L (3.5-5.1)
[2020-09-22 07:12] LABS: ALANINE AMINOTRANSFERASE < 6 U/L (16-63)
[2020-09-22 07:40] LABS: UREA NITROGEN, BLOOD 86 mg/dL (7-18)
[2020-09-22 07:41] LABS: CREATININE 14.2 mg/dL (0.6-1.3)
--- NOTE | 2020-09-22 07:42 | NUR ---
ENDORSED TO AM NURSE IN FAIR CONDITION.
--- NOTE | 2020-09-22 08:00 | NUR ---
RECEIVED PATIENT IN BED AWAKE QUIET RIGHT EYE VERY RED AND INFLAMED WITH SLIGHT DISCHARGE ON ANTIBIOTICS EYE DROPS ORDERED HEPLOCK RIGHT FOREARM INTACT WITH NO S/S OF INFILTERATION ON SITE CALL LIGHTS AND PERSONAL BELONGINGS ARE WITHIN EASY REACH MADE COMFORTABLE WILL CONTINUE TO OBSERVE.
[2020-09-22] MEDS: INSULIN REGULAR, HUMAN 300 UNIT/3 ML VIAL SQ PRN ×4 (08:17→20:23)
[2020-09-22] MEDS: HYDROCHLOROTHIAZIDE 12.5 MG CAPSULE PO SCH (08:29)
[2020-09-22] MEDS: FERROUS SULFATE 325 MG TABEC PO SCH ×2 (08:29→17:02)
[2020-09-22] MEDS: CALCIUM ACETATE 667 MG CAP/TAB PO SCH ×3 (08:29→17:03)
[2020-09-22] MEDS: hydrALAZINE HCL 50 MG TABLET PO SCH ×2 (08:30→17:02)
[2020-09-22] MEDS: METOPROLOL SUCCINATE XL 50 MG TAB.SR.24H PO SCH (08:30)
[2020-09-22] MEDS: NIFEdipine XL 60 MG TABSR PO SCH ×2 (08:30→17:02)
[2020-09-22] MEDS: LOSARTAN POTASSIUM 50 MG TABLET PO SCH (08:31)
[2020-09-22] MEDS: CALCITRIOL 0.25 MCG CAPSULE PO SCH (08:31)
[2020-09-22] MEDS: HEPARIN SODIUM,PORCINE 5,000 UNITS/ML VIAL SQ SCH ×2 (08:32→20:21)
[2020-09-22] MEDS: FLUTICASONE PROP NASAL SPRAY 16 GM BOTTLE NS SCH (08:33)
[2020-09-22] MEDS: NICOTINE 7 MG/24HR PATCH TD SCH (08:33)
--- NOTE | 2020-09-22 09:55 | NUR ---
NEW ORDERS NOTED FOR PATIENT TO BE NOTHING BY MOUTH EXCEPT MEDS PLAN IS FOR PERMA CATH INSERTION TODAY AWAITING FOR THE ORDERS AND TIMING OF THE PROCEDURE
--- NOTE | 2020-09-22 11:09 | NUR ---
AYUSH PHAM CHIEF METER READER CONTINUE DIET PROCEDURE FOR DIALYSIS CATHETER WILL BE LIKELY TOMORROW.PATIENT AWARE AND LIQUIDS PROVIDED.
[2020-09-22 11:26] VITALS: BP 120/56
[2020-09-22 11:28] VITALS: BP 170/80
[2020-09-22] MEDS: CEFAZOLIN 1 G in IV DEXTROSE 5% 50 ML IV SCH (11:47)
--- NOTE | 2020-09-22 12:30 | NUR ---
IVPB ATB REMAIN IN PROGRESS ORDERED WITH NO ADVERSE OR ALLERGIC REACTIONS AT THIS TIME WILL CONTINUE TO OBSERVE.
[2020-09-22 15:41] VITALS: BP 141/70
[2020-09-22] MEDS ORDERED: SODIUM POLYSTYRENE SULFONATE 15 G/60 ML LIQUID UDC PO ONE (16:45)
--- NOTE | 2020-09-22 18:00 | NUR ---
PATIENT SEEN BY SHAYAN PERAZA VENDING ATTENDANT WITH ORDERS PERMA CATH WILL BE PLACED TOMORROW PATIENT WILL BE NOTHING BY MOUTH AFTER MID NIGHT EXCEPT MEDICATIONS AND HE EXPLAINS UNDERSTANDING AND SIGNED THE CONSCENT.POTASSIUM LEVEL IS 5.4 KAEXALATE GIVEN ORDERED
[2020-09-22 20:00] VITALS: BP 124/60
[2020-09-22] MEDS: ATORVASTATIN 40 MG TABLET PO SCH (20:21)
[2020-09-22] MEDS: INSULIN GLARGINE,HUM 300 UNITS/3 ML CARTRIDGE SQ SCH (20:24)
[2020-09-22] MEDS: ZOLPIDEM 5 MG TABLET PO PRN (20:29)
[2020-09-22] MEDS ORDERED: INSULIN REGULAR, HUMAN 300 UNIT/3 ML VIAL SQ PRN (23:45)
[2020-09-22] MEDS ORDERED: DEXTROSE 50% 50 ML DISP.SYRIN IV PRN (23:45)
--- NOTE | 2020-09-23 | NUR ---
Pt rested well in between care; no acute distress; pt reminded to be NPO fr [place]; report given to Nurse Kamara for continuity of care.
[2020-09-23] MEDS: HYDROCODONE/APAP 5-325MG TABLET PO PRN ×2 (02:18→08:16)
--- NOTE | 2020-09-23 02:22 | NUR ---
RECD PT IN BED, ALERT,ORIENTED, REQUESTED PAIN MED, NORCO GIVEN,WITH VERY LITTLE WATER, NPO MAINTAINED.SKIN WARM AND DRY,
[2020-09-23 05:12] VITALS: BP 154/75
[2020-09-23] MEDS: BLOOD SUGAR DIAGNOSTIC 1 EACH STRIP VI SCH ×4 (06:11→21:40)
[2020-09-23] MEDS: PANTOPRAZOLE SODIUM 40 MG TABLET.DR PO SCH (06:12)
--- NOTE | 2020-09-23 07:30 | NUR ---
Received in bed arousable hob elevated. Alert and oriented, aware of surgical procedure today. No respiratory distress noted. Iv intact and patent. Safety measures in place. Bed low and locked. Kept comfortable. Will continue to monitor.
[2020-09-23] MEDS: CALCIUM ACETATE 667 MG CAP/TAB PO SCH ×3 (08:00→17:13)
[2020-09-23 08:06] VITALS: BP 145/67
[2020-09-23] MEDS: NICOTINE 7 MG/24HR PATCH TD SCH (08:16)
[2020-09-23] MEDS: CIPROFLOXACIN 0.3% OPHT DROP 2.5 ML BOTTLE RIGHTEYE SCH ×5 (08:16→20:26)
--- NOTE | 2020-09-23 08:16 | NUR ---
patient's medications accidentally administered under another licensed nurse's name. computer was logged on to a different account.
--- NOTE | 2020-09-23 08:16 | NUR ---
patient is npo for permacath placement. c/o of pain 10/10 and asked for norco. informed livestock sales representative keh and gave ok to give norco for pain. given with small sip of water.
[2020-09-23] MEDS: FLUTICASONE PROP NASAL SPRAY 16 GM BOTTLE NS SCH (08:17)
[2020-09-23 08:38] LABS: HEMATOCRIT 25.6 % (36.7-47.1); MEAN CORPUSCULAR HEMOGLOBIN 30.9 uug (23.8-33.4); MEAN CORPUSCULAR VOLUME 91.1 fL (73.0-96.2); PLATELET COUNT (AUTO) 185 K/uL (152-348)
--- NOTE | 2020-09-23 08:39 | NUR ---
received call from kenji at OR. procedure moved to 1:30pm. pick and shovel man 1pm. patient made aware.
[2020-09-23 08:41] LABS: POTASSIUM 4.9 mmol/L (3.5-5.1)
[2020-09-23 08:43] LABS: CREATININE 15.3 mg/dL (0.6-1.3)
[2020-09-23] MEDS: HYDROCHLOROTHIAZIDE 12.5 MG CAPSULE PO SCH (09:00)
[2020-09-23] MEDS: NIFEdipine XL 60 MG TABSR PO SCH ×3 (09:00→17:00)
[2020-09-23] MEDS: METOPROLOL SUCCINATE XL 50 MG TAB.SR.24H PO SCH ×2 (09:00→11:34)
[2020-09-23] MEDS: FERROUS SULFATE 325 MG TABEC PO SCH ×2 (09:00→17:13)
[2020-09-23] MEDS: LOSARTAN POTASSIUM 50 MG TABLET PO SCH ×2 (09:00→10:01)
[2020-09-23] MEDS: hydrALAZINE HCL 50 MG TABLET PO SCH ×2 (09:00→17:00)
[2020-09-23] MEDS: CALCITRIOL 0.25 MCG CAPSULE PO SCH (09:00)
--- NOTE | 2020-09-23 09:00 | NUR ---
dr. jones also made aware of bun/welfare analyst result and said hd will be done after permcath placement. vip is already aware.
--- NOTE | 2020-09-23 09:50 | NUR ---
Called OR and spoke with VINCENT mcdaniels to give medications with small sip of water. Addendum: 09/23/20 at 1026 by BRAXTON GARCIA RN clarification: VINCENT martin to give bp meds only with small sip of water
[2020-09-23] MEDS: prednisoLONE ACET 1% OPHT DROP 5 ML BOTTLE RIGHTEYE SCH ×3 (10:33→17:13)
[2020-09-23 10:57] VITALS: BP 132/59
[2020-09-23] MEDS: CEFAZOLIN 1 G in IV DEXTROSE 5% 50 ML IV SCH (11:33)
--- NOTE | 2020-09-23 13:57 | NUR ---
Cj Mckeon RN permacath placement moved to 2:15pm.
[2020-09-23 14:00] VITALS: BP 131/68
[2020-09-23] MEDS ORDERED: HEPARIN SODIUM,PORCINE 1,000 UNITS/ML VIAL ONE (14:28)
[2020-09-23] MEDS ORDERED: HEPARIN/NS 500 ML ONE (14:28)
[2020-09-23] MEDS ORDERED: LIDOCAINE 1%-EPI 1:100,000 20 ML VIAL ONE (14:29)
[2020-09-23] MEDS ORDERED: BUPIVACAINE 0.25% 30 ML VIAL ONE (14:29)
[2020-09-23] MEDS ORDERED: LIDOCAINE HCL 1% 20 ML VIAL ONE (14:29)
[2020-09-23] MEDS ORDERED: CLINDAMYCIN PHOSPHATE 600 MG/4 ML VIAL ONE (14:39)
[2020-09-23 16:15] VITALS: BP 114/61
--- NOTE | 2020-09-23 16:15 | NUR ---
Came back from surgery via bed stretcher. Alert and oriented x4 able to make needs known. Denies pain at this time. No respiratory distress. Permacath noted on right upper chest wrapped with gauze taped with tegaderm. No bleeding noted. Vs taken bp 114/61 r18 hr66 t97.5 spo2 96% on room air. Received report from Nabor Maldonado RN stated orders already put in by Dr. Will. Will continue to monitor. Sister at bedside for visit.
--- NOTE | 2020-09-23 17:00 | NUR ---
Bp meds held d/t patient will have dialysis this afternoon.
--- NOTE | 2020-09-23 17:35 | NUR ---
Per Dr. Melgoza he texted HD RN to update about patient's dilaysis but that they are aware of him on the schedule.
[2020-09-23] MEDS ORDERED: DEXTROSE 50% 50 ML DISP.SYRIN IV PRN (17:37)
--- NOTE | 2020-09-23 18:30 | NUR ---
field reporter here for the patient.
--- NOTE | 2020-09-23 18:55 | NUR ---
Patient resting in bed, currently having dialysis. No s/sx of pain or discomfort. IV is intact. No acute distress noted. Safety measures in place. Kept comfortable.
[2020-09-23 20:00] VITALS: BP 120/62
[2020-09-23] MEDS: ATORVASTATIN 40 MG TABLET PO SCH (21:38)
[2020-09-23] MEDS: INSULIN GLARGINE,HUM 300 UNITS/3 ML CARTRIDGE SQ SCH (21:44)
[2020-09-24] MEDS: CIPROFLOXACIN 0.3% OPHT DROP 2.5 ML BOTTLE RIGHTEYE SCH (00:40)
[2020-09-24 04:00] VITALS: BP 149/74
[2020-09-24] MEDS: ACETAMINOPHEN 325 MG TABLET PO PRN ×2 (05:12→16:18)
--- NOTE | 2020-09-24 05:31 | NUR ---
Pt slept throughout the night. Denies pain or SOB. Dialysis done 09/23, removed 1999. Pt in no distress. Safety and comfort provided throughout the shift. No other issues or concerns at this time, will endorse to day shift.
[2020-09-24] MEDS: PANTOPRAZOLE SODIUM 40 MG TABLET.DR PO SCH (06:11)
[2020-09-24] MEDS: BLOOD SUGAR DIAGNOSTIC 1 EACH STRIP VI SCH ×4 (06:48→20:51)
--- NOTE | 2020-09-24 08:47 | NUR ---
Received resting in bed hob elevated arousable. Alert and oriented x4. No respiratory distress. Comfortable in room air. Right upper chest permacath intact. No bleeding noted. Denies pain at this time. Safety measures in place. Wants to sleep a little more. Kept comfortable. Will continue to monitor.
[2020-09-24] MEDS: NICOTINE 7 MG/24HR PATCH TD SCH (09:28)
[2020-09-24] MEDS: CALCIUM ACETATE 667 MG CAP/TAB PO SCH ×3 (09:28→17:15)
[2020-09-24] MEDS: FERROUS SULFATE 325 MG TABEC PO SCH ×2 (09:29→16:17)
[2020-09-24] MEDS: HYDROCHLOROTHIAZIDE 12.5 MG CAPSULE PO SCH (09:29)
[2020-09-24] MEDS: prednisoLONE ACET 1% OPHT DROP 5 ML BOTTLE RIGHTEYE SCH ×3 (09:31→16:18)
[2020-09-24] MEDS: CALCITRIOL 0.25 MCG CAPSULE PO SCH (09:32)
[2020-09-24] MEDS: FLUTICASONE PROP NASAL SPRAY 16 GM BOTTLE NS SCH (09:32)
[2020-09-24] MEDS: LOSARTAN POTASSIUM 50 MG TABLET PO SCH (09:33)
[2020-09-24] MEDS: hydrALAZINE HCL 50 MG TABLET PO SCH ×2 (09:33→16:17)
[2020-09-24] MEDS: NIFEdipine XL 60 MG TABSR PO SCH ×2 (09:34→16:16)
--- NOTE | 2020-09-24 11:03 | NUR ---
HD RN here to dialyze patient.
[2020-09-24] MEDS: METOPROLOL SUCCINATE XL 50 MG TAB.SR.24H PO SCH (11:04)
[2020-09-24 11:21] VITALS: BP 185/86
[2020-09-24] MEDS: CEFAZOLIN 1 G in IV DEXTROSE 5% 50 ML IV SCH (11:22)
[2020-09-24] MEDS: INSULIN REGULAR, HUMAN 300 UNIT/3 ML VIAL SQ PRN ×3 (11:24→20:49)
--- NOTE | 2020-09-24 13:40 | NUR ---
Dialysis done- 2 Liters output. Addendum: 09/24/20 at 1352 by BRAXTON GARCIA RN Patient tolerated procedure. Dilaysis site intact and dressing dry. Patient denies pain just a little tired. Will continue to monitor.
[2020-09-24 15:27] VITALS: BP 179/83
[2020-09-24] MEDS: TOBRAMYCIN 0.3% OPHT DROP 5 ML BOTTLE RIGHTEYE SCH (17:49)
--- NOTE | 2020-09-24 19:00 | NUR ---
Alert and oriented x4. No respiratory distress. Denies pain. right upper chest permacath intact dressing dry. Atb given as ordered. No adverse reactions noted. Iv is intact. Needs attended. Safety maintained. Kept comfortable.
[2020-09-24 20:00] VITALS: BP 109/56
[2020-09-24 20:37] VITALS: BP 109/56
[2020-09-24] MEDS: ATORVASTATIN 40 MG TABLET PO SCH (20:45)
[2020-09-24] MEDS: INSULIN GLARGINE,HUM 300 UNITS/3 ML CARTRIDGE SQ SCH (20:50)
[2020-09-25 04:00] VITALS: BP 129/68
[2020-09-25] MEDS: HYDROCODONE/APAP 5-325MG TABLET PO PRN (05:15)
[2020-09-25] MEDS: PANTOPRAZOLE SODIUM 40 MG TABLET.DR PO SCH (06:36)
[2020-09-25] MEDS: BLOOD SUGAR DIAGNOSTIC 1 EACH STRIP VI SCH ×4 (06:39→22:24)
--- NOTE | 2020-09-25 07:02 | NUR ---
Pt pleasant and able to make needs known. Denies SOB or chest pain. Reports eye feeling slightly better. Safety and comfort provided. Glucose 77 this morning, provided orange juice. Will endorse to day shift.
--- NOTE | 2020-09-25 07:30 | NUR ---
Patient received in bed with eyes closed, but easily arousable. Patient on RA with no SOB or difficulties breathing. No acute distress noted. Right FA IV is patent with no redness or swelling noted at this time. No c/o pain or discomforts at this time. Call light and personal belongings within easy reach. Will continue to monitor.
[2020-09-25] MEDS: CALCIUM ACETATE 667 MG CAP/TAB PO SCH ×3 (08:00→17:21)
--- NOTE | 2020-09-25 08:30 | NUR ---
PATIENT CURRENTLY UNDERGOING HD.
[2020-09-25] MEDS: hydrALAZINE HCL 50 MG TABLET PO SCH ×2 (09:00→17:21)
[2020-09-25] MEDS: NICOTINE 7 MG/24HR PATCH TD SCH (11:31)
[2020-09-25] MEDS: METOPROLOL SUCCINATE XL 50 MG TAB.SR.24H PO SCH (11:32)
[2020-09-25] MEDS: NIFEdipine XL 60 MG TABSR PO SCH ×2 (11:32→17:21)
[2020-09-25] MEDS: LOSARTAN POTASSIUM 50 MG TABLET PO SCH (11:32)
[2020-09-25] MEDS: HYDROCHLOROTHIAZIDE 12.5 MG CAPSULE PO SCH (11:33)
[2020-09-25] MEDS: CALCITRIOL 0.25 MCG CAPSULE PO SCH (11:33)
[2020-09-25] MEDS: FERROUS SULFATE 325 MG TABEC PO SCH ×2 (11:33→17:21)
[2020-09-25] MEDS: TOBRAMYCIN 0.3% OPHT DROP 5 ML BOTTLE RIGHTEYE SCH ×2 (11:34→17:22)
[2020-09-25] MEDS: prednisoLONE ACET 1% OPHT DROP 5 ML BOTTLE RIGHTEYE SCH ×3 (11:34→17:22)
[2020-09-25] MEDS: FLUTICASONE PROP NASAL SPRAY 16 GM BOTTLE NS SCH (11:34)
[2020-09-25 12:00] VITALS: BP 126/68
[2020-09-25] MEDS: CEFAZOLIN 1 G in IV DEXTROSE 5% 50 ML IV SCH (13:26)
[2020-09-25 15:39] VITALS: BP 125/65
[2020-09-25] MEDS: INSULIN REGULAR, HUMAN 300 UNIT/3 ML VIAL SQ PRN ×2 (17:20→22:30)
[2020-09-25] MEDS: CIPROFLOXACIN 0.3% OPHT DROP 2.5 ML BOTTLE RIGHTEYE SCH (18:54)
[2020-09-25 20:00] VITALS: BP 118/60
[2020-09-25] MEDS: ATORVASTATIN 40 MG TABLET PO SCH (22:32)
[2020-09-25] MEDS: INSULIN GLARGINE,HUM 300 UNITS/3 ML CARTRIDGE SQ SCH (22:34)
[2020-09-26 04:00] VITALS: BP 147/71
[2020-09-26] MEDS: PANTOPRAZOLE SODIUM 40 MG TABLET.DR PO SCH (06:32)
[2020-09-26] MEDS: CIPROFLOXACIN 0.3% OPHT DROP 2.5 ML BOTTLE RIGHTEYE SCH ×4 (06:35→18:15)
[2020-09-26] MEDS: BLOOD SUGAR DIAGNOSTIC 1 EACH STRIP VI SCH ×4 (06:35→20:18)
[2020-09-26 06:57] LABS: POTASSIUM 4.4 mmol/L (3.5-5.1)
[2020-09-26 07:25] LABS: CREATININE 7.9 mg/dL (0.6-1.3)
--- NOTE | 2020-09-26 08:00 | NUR ---
creatinine reported to brooke SHER
[2020-09-26] MEDS: FERROUS SULFATE 325 MG TABEC PO SCH ×2 (09:11→17:12)
[2020-09-26] MEDS: NICOTINE 7 MG/24HR PATCH TD SCH (09:11)
[2020-09-26] MEDS: CALCIUM ACETATE 667 MG CAP/TAB PO SCH ×3 (09:11→17:11)
[2020-09-26] MEDS: HYDROCHLOROTHIAZIDE 12.5 MG CAPSULE PO SCH (09:11)
[2020-09-26] MEDS: TOBRAMYCIN 0.3% OPHT DROP 5 ML BOTTLE RIGHTEYE SCH ×2 (09:15→16:19)
[2020-09-26] MEDS: CALCITRIOL 0.25 MCG CAPSULE PO SCH (09:15)
[2020-09-26] MEDS: FLUTICASONE PROP NASAL SPRAY 16 GM BOTTLE NS SCH (09:15)
[2020-09-26] MEDS: prednisoLONE ACET 1% OPHT DROP 5 ML BOTTLE RIGHTEYE SCH ×3 (09:15→16:19)
[2020-09-26] MEDS: METOPROLOL SUCCINATE XL 50 MG TAB.SR.24H PO SCH (09:23)
[2020-09-26] MEDS: NIFEdipine XL 60 MG TABSR PO SCH ×2 (09:23→17:12)
[2020-09-26] MEDS: LOSARTAN POTASSIUM 50 MG TABLET PO SCH (09:24)
[2020-09-26] MEDS: hydrALAZINE HCL 50 MG TABLET PO SCH ×2 (09:24→17:12)
[2020-09-26] MEDS: INSULIN REGULAR, HUMAN 300 UNIT/3 ML VIAL SQ PRN ×3 (11:29→20:22)
[2020-09-26] MEDS: CEFAZOLIN 1 G in IV DEXTROSE 5% 50 ML IV SCH (11:40)
[2020-09-26 12:00] VITALS: BP 136/68
--- NOTE | 2020-09-26 13:53 | NUR ---
patient is alert, oriented x4, no sob, resp even nonlabored, skin warm and dry to touch, perma cath intact, no active bleeding noted, no distress noted.
[2020-09-26] MEDS ORDERED: CEFA1VIA2 IV (14:20)
[2020-09-26] MEDS ORDERED: CIPR2.5D11 RIGHTEYE (14:20)
[2020-09-26] MEDS ORDERED: Insulin Glargine,Hum SQ (14:20)
[2020-09-26] MEDS ORDERED: TOBR2.5D RIGHTEYE (14:22)
--- NOTE | 2020-09-26 14:22 | NUR ---
midline inserted on left upper arm
[2020-09-26 16:27] VITALS: BP 133/67
[2020-09-26 20:05] VITALS: BP 129/60
[2020-09-26] MEDS: ATORVASTATIN 40 MG TABLET PO SCH (20:17)
[2020-09-26] MEDS: INSULIN GLARGINE,HUM 300 UNITS/3 ML CARTRIDGE SQ SCH (20:26)
--- NOTE | 2020-09-26 20:58 | NUR ---
Received pt resting in bed. AAO x4. No acute distress noted. Denies pain/ discomfort. Due meds given as ordered. Blood sugar 233, insulin coverage given as per sliding scale. Safety measures maintained. Call light within reach. Will continue to monitor.
[2020-09-27 04:05] VITALS: BP 113/68
[2020-09-27 05:10] LABS: HEPATITIS B SURFACE AG Negative
[2020-09-27] MEDS: PANTOPRAZOLE SODIUM 40 MG TABLET.DR PO SCH (06:06)
[2020-09-27] MEDS: CIPROFLOXACIN 0.3% OPHT DROP 2.5 ML BOTTLE RIGHTEYE SCH ×4 (06:07→18:37)
[2020-09-27] MEDS: BLOOD SUGAR DIAGNOSTIC 1 EACH STRIP VI SCH ×4 (06:32→20:38)
[2020-09-27] MEDS: NICOTINE 7 MG/24HR PATCH TD SCH (08:54)
[2020-09-27] MEDS: CALCIUM ACETATE 667 MG CAP/TAB PO SCH ×3 (08:54→17:04)
[2020-09-27] MEDS: FERROUS SULFATE 325 MG TABEC PO SCH ×2 (08:55→17:04)
[2020-09-27] MEDS: CALCITRIOL 0.25 MCG CAPSULE PO SCH (08:55)
[2020-09-27] MEDS: prednisoLONE ACET 1% OPHT DROP 5 ML BOTTLE RIGHTEYE SCH ×3 (08:56→17:05)
[2020-09-27] MEDS: TOBRAMYCIN 0.3% OPHT DROP 5 ML BOTTLE RIGHTEYE SCH ×2 (08:56→17:05)
[2020-09-27] MEDS: FLUTICASONE PROP NASAL SPRAY 16 GM BOTTLE NS SCH (08:56)
--- NOTE | 2020-09-27 09:43 | NUR ---
Received this morning resting but easily arousable. Pleasant. Comfortable on room air. Denies pain or sob. IV is intact. Patient appears comfortable. Safety measures in place. Call light in reach. Will continue to monitor.
[2020-09-27] MEDS: CEFAZOLIN 1 G in IV DEXTROSE 5% 50 ML IV SCH (11:52)
[2020-09-27] MEDS: HYDROCHLOROTHIAZIDE 12.5 MG CAPSULE PO SCH (11:53)
[2020-09-27] MEDS: NIFEdipine XL 60 MG TABSR PO SCH ×2 (11:53→17:04)
[2020-09-27] MEDS: LOSARTAN POTASSIUM 50 MG TABLET PO SCH (11:53)
[2020-09-27] MEDS: METOPROLOL SUCCINATE XL 50 MG TAB.SR.24H PO SCH (11:54)
[2020-09-27] MEDS: hydrALAZINE HCL 50 MG TABLET PO SCH ×2 (11:55→17:05)
[2020-09-27 12:00] VITALS: BP 133/58
--- NOTE | 2020-09-27 13:42 | NUR ---
Checked on patient. Resting but easily arousable. Denies pain/discomfort. No complaints at this time.
[2020-09-27 16:00] VITALS: BP 142/64
[2020-09-27] MEDS: INSULIN REGULAR, HUMAN 300 UNIT/3 ML VIAL SQ PRN (17:01)
--- NOTE | 2020-09-27 18:52 | NUR ---
Alert and oriented. Denies pain or discomfort. No respiratory distress. On Iv atb no adverse reaction noted. FERNANDO midline intact. Patient is comfortably watching tv. Safety measures maintained. Kept comfortable. Call light within reach. Needs attended.
--- NOTE | 2020-09-27 19:30 | NUR ---
RECEIVED PT AWAKE, ALERT AND ORIENTEDX4. PT IN NO ACUTE DISTRESS. IV INTACT. SAFETY AND COMFORT PROVIDED. WILL CONTINUE TO MONITOR.
[2020-09-27 20:03] VITALS: BP 132/51
[2020-09-27] MEDS: ATORVASTATIN 40 MG TABLET PO SCH (20:38)
[2020-09-27] MEDS ORDERED: INSULIN GLARGINE,HUM 300 UNITS/3 ML CARTRIDGE SQ ONE (20:51)
[2020-09-27] MEDS: INSULIN GLARGINE,HUM 300 UNITS/3 ML CARTRIDGE SQ SCH (21:02)
[2020-09-27] MEDS: ZOLPIDEM 5 MG TABLET PO PRN (21:03)
[2020-09-28 04:03] VITALS: BP 111/45
[2020-09-28] MEDS: CLONIDINE-TTS 1 PATCH TD SCH (05:38)
--- NOTE | 2020-09-28 06:10 | NUR ---
Sister of the pt called and asking if pt is still here. Angelica is the person to notify on the chart.
--- NOTE | 2020-09-28 06:20 | NUR ---
PT SLEPT INTERMITTENTLY. PT IN NO ACUTE DISTRESS. PRESCRIBED MEDICATION GIVEN AND PT TOLERATED IT WELL. IV INTACT. BLOOD SUGAR WAS 118 AND 88 . AMBIEN PRN GIVEN AT 2103 FOR SLEEP PER PT REQUEST. SAFETY AND COMFORT PROVIDED. ALL NEEDS ARE MET. WILL ENDORSE TO INCOMING NURSE FOR CONTINUITY OF CARE.
[2020-09-28] MEDS: PANTOPRAZOLE SODIUM 40 MG TABLET.DR PO SCH (06:31)
[2020-09-28] MEDS: CIPROFLOXACIN 0.3% OPHT DROP 2.5 ML BOTTLE RIGHTEYE SCH ×4 (06:31→19:02)
[2020-09-28] MEDS: BLOOD SUGAR DIAGNOSTIC 1 EACH STRIP VI SCH ×4 (06:31→20:30)
--- NOTE | 2020-09-28 08:08 | NUR ---
Received in bed resting but easily arousable. No respiratory distress. Denies pain or discomfort at this time. Right upper chest permacath intact with dry dressing. FERNANDO midline intact. Patient verbalized he's ok. Bed low and locked. Safety maintained. Will continue to monitor.
[2020-09-28] MEDS: CALCITRIOL 0.25 MCG CAPSULE PO SCH (08:41)
[2020-09-28] MEDS: CALCIUM ACETATE 667 MG CAP/TAB PO SCH ×3 (08:41→17:06)
[2020-09-28] MEDS: NICOTINE 7 MG/24HR PATCH TD SCH (08:41)
[2020-09-28] MEDS: FERROUS SULFATE 325 MG TABEC PO SCH ×2 (08:41→16:48)
[2020-09-28] MEDS: prednisoLONE ACET 1% OPHT DROP 5 ML BOTTLE RIGHTEYE SCH ×3 (08:43→16:49)
[2020-09-28] MEDS: TOBRAMYCIN 0.3% OPHT DROP 5 ML BOTTLE RIGHTEYE SCH ×2 (08:43→16:48)
[2020-09-28] MEDS: FLUTICASONE PROP NASAL SPRAY 16 GM BOTTLE NS SCH (08:43)
[2020-09-28] MEDS: METOPROLOL SUCCINATE XL 50 MG TAB.SR.24H PO SCH (09:00)
[2020-09-28] MEDS: LOSARTAN POTASSIUM 50 MG TABLET PO SCH (09:00)
[2020-09-28] MEDS: HYDROCHLOROTHIAZIDE 12.5 MG CAPSULE PO SCH (09:00)
[2020-09-28] MEDS: hydrALAZINE HCL 50 MG TABLET PO SCH ×2 (09:00→16:48)
[2020-09-28] MEDS: NIFEdipine XL 60 MG TABSR PO SCH ×2 (09:00→16:48)
--- NOTE | 2020-09-28 09:25 | NUR ---
BP meds held for this morning. Bp 123/52 p64. Patient also scheduled for hemodialysis today.
[2020-09-28 11:24] VITALS: BP 121/53
[2020-09-28] MEDS: CEFAZOLIN 1 G in IV DEXTROSE 5% 50 ML IV SCH (11:32)
--- NOTE | 2020-09-28 13:26 | NUR ---
HD RN [place] here to dialyze patient.
[2020-09-28 16:00] VITALS: BP 159/83
--- NOTE | 2020-09-28 16:40 | NUR ---
Hemodialysis done- 3L output. Patient tolerated procedure. Denies pain just tired.
--- NOTE | 2020-09-28 18:45 | NUR ---
Alert and oriented. Denies pain. Comfortable on room air. Right upper chest permacath intact with dry dressing. Iv is intact. Safety measures maintained. Kept comfortable.
--- NOTE | 2020-09-28 19:30 | NUR ---
RECEIVED PT IN NO ACUTE DISTRESS. IV INTACT. SAFETY AND COMFORT PROVIDED. PT ON ROOM AIR. WILL CONTINUE TO MONITOR.
[2020-09-28 20:00] VITALS: BP 162/88
[2020-09-28] MEDS: ATORVASTATIN 40 MG TABLET PO SCH (20:29)
[2020-09-28] MEDS: INSULIN REGULAR, HUMAN 300 UNIT/3 ML VIAL SQ PRN (20:37)
[2020-09-28] MEDS: INSULIN GLARGINE,HUM 300 UNITS/3 ML CARTRIDGE SQ SCH (20:38)
[2020-09-29 05:13] VITALS: BP 158/83
--- NOTE | 2020-09-29 05:19 | NUR ---
PT SLEPT INTERMITTENTLY. PT IN NO ACUTE DISTRESS. IV INTACT. SAFETY AND COMFORT PROVIDED. PT STABLE.WILL ENDORSE TO INCOMING NURSE FOR CONTINUITY OF CARE.
--- NOTE | 2020-09-29 05:57 | NUR ---
blood sugar was 82. Pt in no acute distress. Observed that pt right eye is red. Pt notice that when I put his eyedrop its painful on his eye. Will endorse to incoming nurse.
[2020-09-29] MEDS: PANTOPRAZOLE SODIUM 40 MG TABLET.DR PO SCH (06:08)
[2020-09-29] MEDS: CIPROFLOXACIN 0.3% OPHT DROP 2.5 ML BOTTLE RIGHTEYE SCH ×3 (06:08→15:00)
[2020-09-29] MEDS: BLOOD SUGAR DIAGNOSTIC 1 EACH STRIP VI SCH ×2 (06:32→11:40)
--- NOTE | 2020-09-29 07:55 | NUR ---
Received patient resting but arousable. No resp distress. Denies pain. ERMA midline noted more than nursing home out. Pressure applied and removed IV. No bleeding noted. Right upper chest permacath intact with dry dressing. Bed is low and locked. Safety measures in place. Call light in reach.
[2020-09-29 08:25] VITALS: BP 163/75
[2020-09-29] MEDS: NICOTINE 7 MG/24HR PATCH TD SCH (08:30)
[2020-09-29] MEDS: CALCIUM ACETATE 667 MG CAP/TAB PO SCH ×2 (08:30→11:40)
[2020-09-29] MEDS: FERROUS SULFATE 325 MG TABEC PO SCH (08:30)
[2020-09-29] MEDS: LOSARTAN POTASSIUM 50 MG TABLET PO SCH (08:31)
[2020-09-29] MEDS: hydrALAZINE HCL 50 MG TABLET PO SCH (08:31)
[2020-09-29] MEDS: HYDROCHLOROTHIAZIDE 12.5 MG CAPSULE PO SCH (08:31)
[2020-09-29] MEDS: NIFEdipine XL 60 MG TABSR PO SCH (08:32)
[2020-09-29] MEDS: METOPROLOL SUCCINATE XL 50 MG TAB.SR.24H PO SCH (08:32)
[2020-09-29] MEDS: CALCITRIOL 0.25 MCG CAPSULE PO SCH (08:33)
[2020-09-29] MEDS: FLUTICASONE PROP NASAL SPRAY 16 GM BOTTLE NS SCH (08:33)
[2020-09-29] MEDS: TOBRAMYCIN 0.3% OPHT DROP 5 ML BOTTLE RIGHTEYE SCH (08:34)
[2020-09-29] MEDS: prednisoLONE ACET 1% OPHT DROP 5 ML BOTTLE RIGHTEYE SCH ×2 (08:34→12:21)
--- NOTE | 2020-09-29 09:40 | NUR ---
NIKKY Rodriguez made aware of pt's c/o right eye still hurting.
[2020-09-29] MEDS: INSULIN REGULAR, HUMAN 300 UNIT/3 ML VIAL SQ PRN (11:43)
[2020-09-29 11:52] VITALS: BP 118/50
[2020-09-29] MEDS ORDERED: CEFAZOLIN 1 G VIAL IM SCH (13:00)
--- NOTE | 2020-09-29 13:30 | NUR ---
Patient has not paid his insurance for 4 times. Is aware that he has no insurance coverage. States will pay insurance when he gets home. Will call international sourcing manager to update insurance so they can follow up with home health for antibiotics at home. Case management number given to Sandor.
--- NOTE | 2020-09-29 14:30 | NUR ---
PATIENT HAS NO WAY TO GET HOME. TAXI VOUCHER REQUESTED. ONCE AGAIN INSTRUCTED ABOUT THE NEED FOR INSURANCE COVERAGE. HE WIIL LOSE HIS DIALYSIS COVERAGE. INSTRUCTED TO SEE OPHTHAMOLOGIST OUTPATIENT FOR EYE INFECTION. VERBALIZED UNDERSTANDING.
[2020-09-29 14:32] VITALS: BP 108/45
--- NOTE | 2020-09-29 14:33 | NUR ---
obtained home meds from pharmacy and given to patient.
--- NOTE | 2020-09-29 15:28 | NUR ---
Alert and oriented x4. Ambulatory. Relayed to patient MD discharge instructions. He verbalized understanding. Stressed the importance of paying insurance so his dialysis will not be stopped. Stated he will. Charge nurse provided CM phone number to call.
--- NOTE | 2020-09-29 15:31 | NUR ---
Also instructed on need for follow up ophthalmology consult. Stated he will.
--- NOTE | 2020-09-29 15:57 | NUR ---
patient discharged to home. alert and oriented x4. no acute distress. patient wanted mixer driver to drop him off to another address: [id number] [address] [id number]. stated that's his address where his roommate is. charge nurse made aware said to change address on voucher. copy made and put in chart. left in stable condition with all his belongings.
== END 2020-09-29 15:50 | disposition home or self-care (01) | DRG 314 ==
LOC: ER 15:41 → TRANSITION 18:13 → TELE3 21:12 → MEDSURG3 09-13 12:38
PROVIDERS: ADMIT Nurse Practitioner Family; ATTEND Nurse Practitioner Acute Care
PROC: 5A1D70Z Performance of Urinary Filtration, Intermittent, Less than 6 Hours Per Day (ICD-10-PCS; 2020-09-15)
PROC: 05PYX3Z Removal of Infusion Device from Upper Vein, External Approach (ICD-10-PCS; 2020-09-17)
PROC: 0JH63XZ Insertion of Tunneled Vascular Access Device into Chest Subcutaneous Tissue and Fascia, Percutaneous Approach (ICD-10-PCS; principal; 2020-09-23)
PROC: 02HV33Z Insertion of Infusion Device into Superior Vena Cava, Percutaneous Approach (ICD-10-PCS; 2020-09-23)
PROC: B518YZA Fluoroscopy of Superior Vena Cava using Other Contrast, Guidance (ICD-10-PCS; 2020-09-23)
DX: T80.211A Bloodstream infection due to central venous catheter, initial encounter (principal); N18.6 End stage renal disease; A41.01 Sepsis due to Methicillin susceptible Staphylococcus aureus; J96.00 Acute respiratory failure, unspecified whether with hypoxia or hypercapnia; J18.9 Pneumonia, unspecified organism; E87.1 Hypo-osmolality and hyponatremia; I12.0 Hypertensive chronic kidney disease with stage 5 chronic kidney disease or end stage renal disease; J30.9 Allergic rhinitis, unspecified; E11.22 Type 2 diabetes mellitus with diabetic chronic kidney disease; Z99.2 Dependence on renal dialysis; D63.1 Anemia in chronic kidney disease; D69.6 Thrombocytopenia, unspecified; E83.39 Other disorders of phosphorus metabolism; E83.42 Hypomagnesemia; F17.210 Nicotine dependence, cigarettes, uncomplicated; Z20.822 Contact with and (suspected) exposure to COVID-19; R53.1 Weakness; I95.1 Orthostatic hypotension; Z86.73 Personal history of transient ischemic attack (TIA), and cerebral infarction without residual deficits; E83.9 Disorder of mineral metabolism, unspecified; Z88.0 Allergy status to penicillin; H10.9 Unspecified conjunctivitis; Y84.8 Other medical procedures as the cause of abnormal reaction of the patient, or of later complication, without mention of misadventure at the time of the procedure; H16.9 Unspecified keratitis; R20.2 Paresthesia of skin; F32.9 Major depressive disorder, single episode, unspecified; M89.9 Disorder of bone, unspecified; Z71.6 Tobacco abuse counseling; Z79.4 Long term (current) use of insulin
CPT/HCPCS: 36415; 70030-TC; 70450; 71045; 83550; 83605; 83735; 84100; 84132; 84295; 85025; 85610; 85651; 85730; 86704; 86706; 87040; 87070; 87077; 87086; 87340; 90937; 93005; 93307; 97161; A4217; A4649; A4663; A9150; C1750; G0378; J0360; J0690; J0692; J0696; J1644; J1815; J2185; J2650; J3370; J3490; J3535; J7030; J7040; J7060

== ENCOUNTER 2020-10-05 02:09 | Emergency (ER) | payer MEDICAID ==
[~2020-10-05] VITALS: Ht 170.2 cm; Wt 72.6 kg
[~2020-10-05 02:09] MED LIST: ASPI81TA31 PO; ATOR40TA PO; CALC0.253 PO; CALC667T6 PO; CIPR2.5D11 RIGHTEYE; FERR325T30 PO; FLUT16SP16 NS; HYDR-4077 PO; Insulin Glargine,Hum SQ; METO200T3 PO; NIFE-34 PO; OLME1TAB19 PO; TOBR2.5D RIGHTEYE
[2020-10-05] MEDS ORDERED: ONDANSETRON 4 MG/2 ML VIAL IV ONE (02:30)
[2020-10-05] MEDS ORDERED: HYDROMORPHONE 1 MG/1 ML DISP.SYRIN IV ONE (02:30)
[2020-10-05] MEDS ORDERED: HYDROMORPHONE 1 MG/1 ML DISP.SYRIN ONE (02:45)
[2020-10-05] MEDS ORDERED: ONDANSETRON 4 MG/2 ML VIAL ONE (02:45)
--- NOTE | 2020-10-05 02:53 | NUR ---
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 Pt. c/o right hip pain and eye pain. Pt. states he also hit his head, but denies ko. Pt has a hx of htn, diabetes, and renal failure. Pt. aox4, denies other symptoms. Vss. No signs of distress. Will continue to monitor.
[2020-10-05] MEDS ORDERED: OXYC-128 PO (03:12)
[2020-10-05] MEDS ORDERED: KETOROLAC TROMETHAMINE 30 MG INJ IVP ONE (03:15)
[2020-10-05] MEDS ORDERED: KETOROLAC TROMETHAMINE 30 MG INJ ONE (03:22)
--- NOTE | 2020-10-05 03:25 | NUR ---
Pt is going to be discharged, he is being driven home by roommate.
[2020-10-05 03:27] VITALS: BP 137/80
--- NOTE | 2020-10-05 03:27 | NUR ---
Patient discharged to home in stable condition. Written and verbal after care instructions given. Patient verbalizes understanding of instructions. Stressed follow up or return to ER for worsening s/s. IV removed. Vss. No signs of distress. Pt. walks with steady gait. All belongings taken.
== END 2020-10-05 03:29 | disposition home or self-care (01) ==
LOC: ER 02:10
DX: S70.01XA Contusion of right hip, initial encounter (principal); S09.90XA Unspecified injury of head, initial encounter; W01.0XXA Fall on same level from slipping, tripping and stumbling without subsequent striking against object, initial encounter; Y92.89 Other specified places as the place of occurrence of the external cause; F17.210 Nicotine dependence, cigarettes, uncomplicated; E11.22 Type 2 diabetes mellitus with diabetic chronic kidney disease; N18.6 End stage renal disease; Z99.2 Dependence on renal dialysis; Z79.4 Long term (current) use of insulin; Z88.0 Allergy status to penicillin; E11.319 Type 2 diabetes mellitus with unspecified diabetic retinopathy without macular edema; H54.7 Unspecified visual loss
CPT/HCPCS: 72170; 73502; 96374; 96375; 99284; J1170; J1885; J2405; A4663